=== PATIENT | female | born 1965 | race African-American/Black ===

== ENCOUNTER 2017-01-12 14:13 | Emergency (ER) | payer MEDICARE, OTHER ==
[~2017-01-12] VITALS: Ht 162.6 cm; Wt 78.0 kg
[~2017-01-12 14:13] MED LIST: CITA20TA11 PO; Norco; QUET300T2 PO; VITAMIN D PO; [UNRECOGNIZED DRUG - CODE] PO; hydrocortisone
[2017-01-12] MEDS ORDERED: FAMOTIDINE 20MG TABLET PO ONE (16:45)
[2017-01-12] MEDS ORDERED: IPRATROPIUM/ALBUTEROL 0.5-3(2.5)MG/3ML NEB HHN ONE (16:45)
[2017-01-12 17:46] VITALS: BP 121/88
== END 2017-01-12 17:56 | disposition home or self-care (01) ==
LOC: ER 15:18
DX: R05 Cough (principal); K21.9 Gastro-esophageal reflux disease without esophagitis; J45.909 Unspecified asthma, uncomplicated
CPT/HCPCS: 94640; 99283; J7620

== ENCOUNTER 2017-07-15 19:10 | Emergency (ER) | payer MEDICARE, OTHER ==
[~2017-07-15] VITALS: Ht 165.1 cm; Wt 79.7 kg
[2017-07-15] MEDS ORDERED: ACETAMINOPHEN WITH CODEINE 300/30MG TABLET PO ONE (21:30)
[2017-07-15 22:25] VITALS: BP 118/85
== END 2017-07-15 22:40 | disposition home or self-care (01) ==
LOC: ER 21:27
DX: M79.1 Myalgia (principal); J45.909 Unspecified asthma, uncomplicated; F17.200 Nicotine dependence, unspecified, uncomplicated
CPT/HCPCS: 71045; 99283

== ENCOUNTER 2018-12-10 17:34 | Emergency (ER) | payer MEDICARE, OTHER ==
[~2018-12-10] VITALS: Ht 165.1 cm; Wt 86.0 kg
[~2018-12-10 17:34] MED LIST changes: -CITA20TA11 PO; +CITA20TA75 PO
[2018-12-10] MEDS ORDERED: HYDROCODONE/ACETAMINOPHEN 5/325MG TABLET PO ONE (19:15)
[2018-12-10 20:20] VITALS: BP 115/71
== END 2018-12-10 20:21 | disposition home or self-care (01) ==
LOC: ER 17:34
DX: S80.02XA Contusion of left knee, initial encounter (principal); S70.02XA Contusion of left hip, initial encounter; F17.200 Nicotine dependence, unspecified, uncomplicated; J45.909 Unspecified asthma, uncomplicated; W18.39XA Other fall on same level, initial encounter; Y93.89 Activity, other specified; Y92.89 Other specified places as the place of occurrence of the external cause; Y99.8 Other external cause status; Z79.899 Other long term (current) drug therapy
CPT/HCPCS: 73502; 73560; 99283

== ENCOUNTER 2019-09-12 18:57 | Emergency (ER) | payer MEDICARE, OTHER ==
[~2019-09-12] VITALS: Ht 165.1 cm; Wt 82.0 kg
[2019-09-12] MEDS ORDERED: PREDNISONE 20MG TABLET PO ONE (19:30)
[2019-09-12] MEDS ORDERED: ALBUTEROL (0.083%) 2.5MG/3ML NEB HHN ONE (19:30)
[2019-09-12 21:09] VITALS: BP 123/89
== END 2019-09-12 21:10 | disposition home or self-care (01) ==
LOC: ER 18:57
DX: R06.02 Shortness of breath (principal)
CPT/HCPCS: 71045; 81025; 94640; 99283; J7512

== ENCOUNTER 2020-03-03 18:02 | Emergency (ER) | payer MEDICARE, OTHER, MEDICAID ==
[~2020-03-03] VITALS: Ht 170.2 cm; Wt 79.0 kg
[2020-03-03 18:12] VITALS: BP 110/83
[2020-03-03] MEDS ORDERED: ACETAMINOPHEN 500MG TABLET PO ONE (22:00)
== END 2020-03-04 00:58 | disposition left against medical advice (07) ==
LOC: ER 18:02
DX: M25.562 Pain in left knee (principal)
CPT/HCPCS: 99281

== ENCOUNTER → 2022-04-23 | Day surgery (SDC) | payer MEDICARE, OTHER ==
[~2022-04-23] VITALS: Ht 167.6 cm; Wt 80.7 kg
[~2022-04-23] MED LIST changes: +BIMA2.5D4 BOTHEYE; +BUDE6.9H IH; -CITA20TA75 PO; +CYCL10TA21 PO; +FENTANYL CITRATE/PF 50MCG/ML 2ML VIAL ONE; +HYDR-4009 PO; +HYDR10TA PO; +HYDR5TAB13 PO; +HYDROMORPHONE HCL/PF 2MG/ML CPJ IV NR; +HYDROMORPHONE HCL/PF 2MG/ML CPJ ONE; +METF-414 PO; +MIDAZOLAM HCL 2 MG/2 ML VIAL ONE; -Norco; +PRAV20TA57 PO; +PROPOFOL 200MG/20ML VIAL IV ONE; +QUET200T30 PO; -QUET300T2 PO; +SODIUM CHLORIDE 0.9% 1,000 ML IV SCH; +TIZA4CAP6 PO; -VITAMIN D PO; -[UNRECOGNIZED DRUG - CODE] PO; -hydrocortisone
[2022-04-23 12:50] VITALS: BP 140/93
== END | disposition home or self-care (01) ==
LOC: OR 11:08
PROVIDERS: ATTEND Internal Medicine Gastroenterology
DX: Z12.11 Encounter for screening for malignant neoplasm of colon (principal); K64.4 Residual hemorrhoidal skin tags; K63.5 Polyp of colon; K63.89 Other specified diseases of intestine; E78.00 Pure hypercholesterolemia, unspecified; E11.9 Type 2 diabetes mellitus without complications; M19.90 Unspecified osteoarthritis, unspecified site; J45.909 Unspecified asthma, uncomplicated; Z79.84 Long term (current) use of oral hypoglycemic drugs; Z79.899 Other long term (current) drug therapy; Z98.890 Other specified postprocedural states; Z87.891 Personal history of nicotine dependence; Z20.822 Contact with and (suspected) exposure to COVID-19
CPT/HCPCS: 45380; 74018; 76700; 82962; 87426; 88305; C9803; J1170; J2250; J2704; J3010

== ENCOUNTER 2023-08-23 15:48 | Emergency (ER) | payer MEDICARE, OTHER ==
[~2023-08-23] VITALS: Ht 167.6 cm; Wt 80.7 kg
[~2023-08-23 15:48] MED LIST changes: +AMOX1TAB16 MT; -FENTANYL CITRATE/PF 50MCG/ML 2ML VIAL ONE; -HYDR10TA PO; -HYDR5TAB13 PO; -HYDROMORPHONE HCL/PF 2MG/ML CPJ IV NR; -HYDROMORPHONE HCL/PF 2MG/ML CPJ ONE; +MED4 MT; -MIDAZOLAM HCL 2 MG/2 ML VIAL ONE; -PROPOFOL 200MG/20ML VIAL IV ONE; -SODIUM CHLORIDE 0.9% 1,000 ML IV SCH
[2023-08-23 16:03] VITALS: O2SAT 97
[2023-08-23 16:43] LABS: BASOPHILS % 0.6 % (0.0-2.0); EOSINOPHILS % 6.8 % (0.0-5.0); HEMATOCRIT. 39.2 % (36.0-48.0); LYMPHOCYTES % 58.3 % (20.0-50.0); MEAN CORPUSCULAR HEMOGLOBIN 31.1 pg (28.0-32.0); MEAN CORPUSCULAR HGB CONC 35.8 g/dL (31.0-37.0); MEAN PLATELET VOLUME 7.7 fl (7.4-10.4); MONOCYTES % 6.4 % (2.0-8.0); NEUTROPHILS % 27.9 % (40.0-76.0); PLATELET 318 x1000/uL (130-400); RED BLOOD CELL COUNT 4.51 mill/uL (4.2-5.4); RED CELL DISTRIBUTION WIDTH 14.1 % (11.6-14.6); WHITE BLOOD COUNT 8.2 x1000/uL (4.5-11.0)
[2023-08-23 16:53] LABS: CHLORIDE 109 mEq/L (98-107); POTASSIUM 4.2 mEq/L (3.5-5.1); SODIUM 141 mEq/L (136-145)
[2023-08-23 16:54] LABS: CALCIUM 9.2 mg/dL (8.7-10.4); CARBON DIOXIDE 25 mEq/L (21-32)
[2023-08-23 16:59] LABS: CREATININE 0.9 mg/dL (0.6-1.0); GLUCOSE 102 mg/dL (70-105); UREA NITROGEN BLOOD 7 mg/dL (9-23)
[2023-08-23] MEDS ORDERED: ALBUTEROL (0.083%) 2.5MG/3ML NEB HHN STA (18:25)
[2023-08-23] MEDS ORDERED: IPRATROPIUM BROMIDE (0.02%) 0.5MG/2.5ML NEB HHN ONE (18:30)
[2023-08-23] MEDS: DEXAMETHASONE 10 MG/ML VIAL PO ONE (18:34)
[2023-08-23 19:11] LABS: TROPONIN I HIGH SENSITIVITY < 4 ng/L (3.0-34)
[2023-08-23 21:10] VITALS: PULSE 89; RESP 20
[2023-08-23] MEDS ORDERED: NAPR220C61 MT (21:17)
[2023-08-23] MEDS: IPRATROPIUM BROMIDE (0.02%) 0.5MG/2.5ML NEB HHN NR (21:31)
[2023-08-23] MEDS: ALBUTEROL (0.083%) 2.5MG/3ML NEB HHN NR (21:31)
[2023-08-23 21:57] VITALS: BP 117/81; PULSE 98; RESP 20; TEMP 98.6
== END 2023-08-23 22:15 | disposition home or self-care (01) ==
LOC: ER 15:48
DX: M79.622 Pain in left upper arm (principal); J45.901 Unspecified asthma with (acute) exacerbation; Z79.899 Other long term (current) drug therapy
CPT/HCPCS: 99285; 71045; 80048; 83880; 85025; 84484; 94640; 93005; 36415; J1100

== ENCOUNTER 2023-11-15 15:19 | Emergency (ER) | payer MEDICARE, OTHER ==
[~2023-11-15] VITALS: Ht 172.7 cm; Wt 65.0 kg
[~2023-11-15 15:19] MED LIST changes: +NAPR220C61 MT
[2023-11-15 15:22] VITALS: O2SAT 99
[2023-11-15] MEDS: NALOXONE HCL 0.4MG/ML 1ML VIAL IV ONE (15:53)
[2023-11-15] MEDS: SODIUM CHLORIDE 0.9% 1,000 ML IV ONE (15:53)
[2023-11-15 17:29] LABS: BASOPHILS % 0.3 % (0.0-2.0); HEMATOCRIT. 42.7 % (36.0-48.0); LYMPHOCYTES % 60.9 % (20.0-50.0); MEAN CORPUSCULAR HEMOGLOBIN 30.2 pg (28.0-32.0); MEAN CORPUSCULAR HGB CONC 32.8 g/dL (31.0-37.0); MEAN CORPUSCULAR VOLUME 91.8 fL (81.0-99.0); MEAN PLATELET VOLUME 7.7 fl (7.4-10.4); MONOCYTES % 5.7 % (2.0-8.0); NEUTROPHILS % 28.1 % (40.0-76.0); PLATELET 281 x1000/uL (130-400); RED BLOOD CELL COUNT 4.65 mill/uL (4.2-5.4); RED CELL DISTRIBUTION WIDTH 14.2 % (11.6-14.6); WHITE BLOOD COUNT 6.4 x1000/uL (4.5-11.0)
[2023-11-15 17:34] LABS: CHLORIDE 112 mEq/L (98-107); POTASSIUM 4.1 mEq/L (3.5-5.1); SODIUM 139 mEq/L (136-145)
[2023-11-15 17:35] LABS: CARBON DIOXIDE 21 mEq/L (21-32)
[2023-11-15 17:36] LABS: CALCIUM 8.9 mg/dL (8.7-10.4)
[2023-11-15 17:40] LABS: CREATININE 0.8 mg/dL (0.6-1.0); GLUCOSE 69 mg/dL (70-105)
[2023-11-15 17:42] LABS: ACETAMINOPHEN < 2 ug/mL (10-30); ALANINE AMINOTRANSFERASE 8 IU/L (10-49); ASPARTATE AMINOTRANSFERASE 15 IU/L (<34)
[2023-11-15 17:43] LABS: BILIRUBIN TOTAL 0.7 mg/dL (0.1-1.0); PROTEIN TOTAL 6.6 g/dL (6.0-8.3)
[2023-11-15 17:54] LABS: UREA NITROGEN BLOOD < 5 mg/dL (9-23)
[2023-11-15 17:55] LABS: ETHANOL BLOOD < 10 mg/dL (<10)
[2023-11-15] MEDS ORDERED: NALO4SPR BOTHNSTRLS (18:26)
[2023-11-15 18:45] VITALS: BP 110/70; PULSE 96; RESP 13; TEMP 36.94740; O2SAT 99
== END 2023-11-15 19:11 | disposition home or self-care (01) ==
LOC: ER 15:19
DX: T65.91XA Toxic effect of unspecified substance, accidental (unintentional), initial encounter (principal); J45.909 Unspecified asthma, uncomplicated; Z79.899 Other long term (current) drug therapy; Y92.9 Unspecified place or not applicable
CPT/HCPCS: 80053; 80307; 80329; 80320; 85025; 36415; 93005; 96361; 96374; 99285; J2310; J7030; G0480